=== PATIENT | male | born 1995 | race Two or more races ===

== ENCOUNTER 2018-12-13 19:52 | Emergency (ER) | payer OTHER ==
[~2018-12-13] VITALS: Ht 162.6 cm; Wt 43.4 kg
[2018-12-13] MEDS ORDERED: ipratropium/albuterol 3ml nebule NEB ONE (20:55)
[2018-12-13] MEDS ORDERED: predniSONE 20 mg tablet PO ONE (20:55)
[2018-12-13] MEDS ORDERED: PRED10TA23 PO (20:59)
[2018-12-13 21:28] VITALS: BP 122/84
[2018-12-13] MEDS ORDERED: ADV50100 IH (21:32)
== END 2018-12-13 21:52 | disposition home or self-care (01) ==
LOC: ER 19:53
DX: J45.901 Unspecified asthma with (acute) exacerbation (principal); Z79.899 Other long term (current) drug therapy
CPT/HCPCS: 71045; 93005; 94640; 94760; 99283; J7512